=== PATIENT | male | born 1965 | race African-American/Black ===

== ENCOUNTER 2017-03-04 17:03 | Emergency (ER) | payer BC ==
[~2017-03-04] VITALS: Ht 167.6 cm; Wt 81.7 kg
[~2017-03-04 17:03] MED LIST: ADULT LOW DOSE81 MG PO; ALLEGRA ALLERG180 MG PO; ASPIRIN325 PO; COLACE100 MG PO; IBUPROFEN 600600 M1 PO; IBUPROFEN 800800 M1 PO; LEVAQUIN 500 M500 MG PO; LIPITOR 10 MG10 M1 PO; NORCO 5-325 TA1 EACH PO; PHENERGAN 25 MG25 M1 PO; PREDNISONE50 MG PO; PRILOSEC40 MG PO; PROMETHAZINE-C120 ML PO; TRAMADOL 50 MG50 MG PO; ZOFRAN ODT4 MG PO; ZPAK PO
[2017-03-04] MEDS ORDERED: OMEPRAZOLE40 MG PO (17:48)
[2017-03-04] MEDS ORDERED: OLMSRTN-AMLDPN1 EACH PO (17:48)
[2017-03-04] MEDS ORDERED: NAPROSYN500 MG PO (18:36)
[2017-03-04] MEDS ORDERED: ULTRAM 50MG TAB50 MG PO (18:36)
== END 2017-03-04 19:06 | disposition home or self-care (01) ==
LOC: ER 17:03
DX: S63.502A Unspecified sprain of left wrist, initial encounter (principal); I10 Essential (primary) hypertension; F17.210 Nicotine dependence, cigarettes, uncomplicated; Z88.0 Allergy status to penicillin; X50.0XXA Overexertion from strenuous movement or load, initial encounter; Y93.89 Activity, other specified; Y92.89 Other specified places as the place of occurrence of the external cause; Y99.8 Other external cause status

== ENCOUNTER 2020-11-04 08:50 | Observation (INO) | payer BC ==
[~2020-11-04] VITALS: Ht 167.6 cm; Wt 127.5 kg
[~2020-11-04 08:50] MED LIST changes: +NAPROSYN500 MG PO; +OLMSRTN-AMLDPN1 EACH PO; +OMEPRAZOLE40 MG PO; +ULTRAM 50MG TAB50 MG PO
[2020-11-04 08:55] VITALS: BP 175/107
[2020-11-04 09:41] LABS: ABSOLUTE NEUTROPHILS 6.8 thou/uL (1.4-8.2); BASOPHILS 0.4 % (0.0-2.0); EOSINOPHILS 2.2 % (0.0-3.0); HEMATOCRIT 39.7 % (42.0-52.0); HEMOGLOBIN 13.5 gm/dL (14.0-18.0); LYMPHOCYTES 20.1 % (24.0-44.0); MCH 31.2 pg (26.0-34.0); MCHC 33.8 g/dL (28.0-37.0); MCV 92.2 fL (80.0-100.0); MONOCYTES 9.8 % (1.0-8.0); POLYS 67.5 % (36.0-66.0); RBC 4.31 mil/uL (4.50-6.00); WBC 10.1 thou/uL (4.0-11.0)
[2020-11-04 10:05] LABS: ANION GAP 10 mmol/L (7-16); BUN 15 mg/dL (7-18); CALCIUM 8.9 mg/dL (8.5-10.1); CHLORIDE 99 mmol/L (98-107); CO2 31 mmol/L (21-32); GLUCOSE 97 mg/dL (74-106); SODIUM 140 mmol/L (136-145); TROPONIN-I <0.06 ng/mL (<0.06)
[2020-11-04 10:06] LABS: POTASSIUM 2.7 mmol/L (3.5-5.1)
[2020-11-04 10:20] LABS: PLATELET COUNT 189 thou/uL (150-400); PLATELET ESTIMATE NORMAL
[2020-11-04 11:00] VITALS: BP 178/104
--- NOTE | 2020-11-04 11:37 | EKG ---
[address] [address] ELECTROCARDIOGRAM REPORT Name: KENNYAMY Montse Room #: 170-8 ADM IN M.R.#: [id number] Admission: 11/04/20 Attend Phys: Adi Zarco MD Discharge: Date of : 61 Report #: [id number] [facility] ED Test Date: 2020-11-04 Test Time: 08:52:41 Pat Name: AMY COX Department: Room: 170 Gender: M Technical Account Manager: CARIDAD : 1965 Requested By: Helene Coppola Order Number: [id number] MD: Abelardo Arauz Measurements Intervals [place] Rate: 66 P: 9 MT: 221 QRS: 2 QRSD: 117 T: 56 QT: 417 QTc: 437 Interpretive Statements Sinus rhythm Prolonged MT interval Nonspecific intraventricular conduction delay Compared to ECG 05/05/2012 22:16:22 Intraventricular conduction delay now present Electronically Signed On 11-04-2020 11:36:56 [employer] by Abelardo Arauz [email or web address] <ELECTRONICALLY SIGNED> By: Abelardo Arauz MD, [facility] 11/04/20 1136 0852 1 Abelardo Arauz MD, FAC /EPI
[2020-11-04 11:56] VITALS: BP 178/104
[2020-11-04 12:00] VITALS: BP 174/76
--- NOTE | 2020-11-04 14:15 | 2DMMODE ---
[facility] [place] [address] 2 D/M-MODE ECHOCARDIOGRAM Name: AMY COX Room #: 213-P ADM IN .R.#: [id number] Admission: 11/04/20 Attend Phys: Adi Zarco MD Discharge: Date of : 61 Report #: [id number] THIS REPORT FOR: cc: Bala Navarro Steven F. DO Lammoglia, Francisco J. MD ~ APPROVED REPORT Study performed: 11/04/2020 12:45:45 EXAM: Comprehensive 2D, Doppler, and color-flow Echocardiogram Patient Location: Bedside Room #: 213 Status: routine BSA: 1.93 HR: 61 bpm BP: 178/104 mmHg Rhythm: NSR Other Information Study Quality: Good Indications Chest Pain Hx: HTN, HLD, tob/alcohol abuse 2D Dimensions RVDd: 35.53 mm IVSd: 13.12 (7-11mm) LVOT Diam: 24.68 (18-24mm) LVDd: 57.71 mm PWd: 12.00 (7-11mm) Ascending Ao: 31.93 (22-36mm) LVDs: 44.92 (25-40mm) Aortic Root: 37.83 mm Volumes Left Atrial Volume (Systole) Single Plane 4CH: 45.79 mL Single Plane 2CH: 66.74 mL LA ESV Index: 32.00 mL/m2 Aortic Valve AoV Peak Marcus.: 0.77 m/s AO Peak Gr.: 2.36 mmHg LVOT Max P.73 mmHg LVOT Max V: 0.83 m/s RAMU Vmax: 5.14 cm2 [facility] [address] [place] [address] 2 D/M-MODE ECHOCARDIOGRAM Name: KENNYAMY Montse Room #: 213-P [facility]#: [id number] Admission: 11/04/20 Attend Phys: Adi Zarco MD Discharge: Date of : 61 Report #: [id number] Mitral Valve E/A Ratio: 1.0 MV Decel. Time: 230.58 ms MV E Max Marcus.: 0.51 m/s MV A Marcus.: 0.51 m/s MV PHT: 66.87 ms IVRT: 110.73 ms Pulmonary Valve PV Peak Marcus.: 0.85 m/s PV Peak Gr.: 2.91 mmHg Pulmonary Vein P Vein S: 0.56 m/s P Vein D: 0.32 m/s P Vein S/D Ratio: 1.75 Tricuspid Valve TR Peak Marcus.: 1.72 m/s RAP Estimate: 5.00 mmHg TR Peak Gr.: 11.77 mmHg PA Pressure: 17.00 mmHg Left Ventricle Left ventricle is at the upper limits of normal. Mild concentric left ventricular hypertrophy. Left ventricular systolic function is low normal. LVEF is 50%. Mild diastolic dysfunction is present (impaired relaxation pattern). Right Ventricle The right ventricle is normal size. The right ventricular systolic function is normal. Atria The left atrium size is normal. The right atrium size is normal. Aortic Valve The aortic valve is normal in structure; leaflets mildly thickened & calcified. Trace aortic regurgitation. There is no aortic valvular stenosis. Mitral Valve The mitral valve is normal in structure. There is no mitral valve regurgitation noted. No evidence of mitral valve stenosis. Tricuspid Valve [facility] [address] [place] [address] 2 D/M-MODE ECHOCARDIOGRAM Name: AMY COX Room #: 213-P [facility]#: [id number] Admission: 11/04/20 Attend Phys: Adi Zarco MD Discharge: Date of : 61 Report #: [id number] The tricuspid valve is normal in structure. Trace to mild tricuspid regurgitation. Estimated PAP is 17mmHg. Pulmonic Valve The pulmonary valve is normal in structure. Trace pulmonic regurgitation. Great Vessels Aortic root is upper limits of normal The ascending aorta is normal in size. IVC is normal in size and collapses >50% with inspiration. Pericardium There is no pericardial effusion. <Conclusion> Left ventricle is at the upper limits of normal. LVEF is 50%. The aortic valve is normal in structure; leaflets mildly thickened & calcified. Trace aortic regurgitation. The mitral valve is normal in structure. The tricuspid valve is normal in structure. Trace to mild tricuspid regurgitation. Estimated PAP is 17mmHg. The pulmonary valve is normal in structure. Trace pulmonic regurgitation. Aortic root is upper limits of normal There is no pericardial effusion. <ELECTRONICALLY SIGNED> By: Jarrett Gaytan MD 11/04/20 1415 1415 141 Jarrett Gaytan MD /INF
--- NOTE | 2020-11-04 14:57 | NUR ---
pt was admitted around 1200 to room 213 from ed. pt admission done and orders implemented. cardiology came to see pt.
[2020-11-04 15:19] LABS: CHOLESTEROL 243 mg/dL (<200); HDL CHOLESTEROL 50 mg/dL (>40); LDL CHOLESTEROL 167 mg/dL (<100); TC:HDL 4.9 Ratio (Not establshd); TRIGLYCERIDE 131 mg/dL (<150); VLDL 26 mg/dL (<40)
[2020-11-04 15:36] LABS: MAGNESIUM 2.6 mg/dL (1.8-2.4); POTASSIUM 3.1 mmol/L (3.5-5.1); TROPONIN-I <0.06 ng/mL (<0.06)
[2020-11-04 15:40] VITALS: BP 170/97
--- NOTE | 2020-11-04 18:08 | NUR ---
PT SEEN BY CARDIOLOGY, NO PROCEDURES PLANNED, PER LINE DEPARTMENT SUPERVISOR WITH HOSPITALIST PT DOES NOT NEED A COVID SWAB, ORDER CANCELED. PT DENIES ANY NEEDS. PER CARDIOLOGY TRYING TO BETTER CONTROL BP THEN OPT STRESS TEST
[2020-11-04 20:01] VITALS: BP 157/97
[2020-11-05 00:35] VITALS: BP 147/84
[2020-11-05 04:54] VITALS: BP 146/88
--- NOTE | 2020-11-05 04:58 | NUR ---
ASSUMED PATIENT CARE AT 1845. VITAL SIGNS STABLE WITH PATIENT HAVING NO COMPLAINTS OF PAIN OR NAUSEA. FULLY ORIENTED, PATIENT IS ABLE TO CALL APPROPRIATELY FOR NEEDS AND PARTICIPATE IN CARE. POTASSIUM REPLACED PER PROTOCOL. PATIENT HAS BEEN UP AD [place] THROUGHOUT SHIFT AND APPEARS STRONG AND BALANCED WHEN AMBULATING. CONTINUE PLAN OF CARE.
[2020-11-05 05:11] LABS: BASOPHILS 0.4 % (0.0-2.0); EOSINOPHILS 2.9 % (0.0-3.0); HEMOGLOBIN 13.8 gm/dL (14.0-18.0); LYMPHOCYTES 21.8 % (24.0-44.0); MCH 31.5 pg (26.0-34.0); MCHC 33.7 g/dL (28.0-37.0); MCV 93.5 fL (80.0-100.0); MONOCYTES 10.3 % (1.0-8.0); PLATELET COUNT 185 thou/uL (150-400); POLYS 64.6 % (36.0-66.0); RBC 4.39 mil/uL (4.50-6.00); RDW 13.9 % (10.5-14.5); WBC 7.8 thou/uL (4.0-11.0)
[2020-11-05 05:59] LABS: ANION GAP 10 mmol/L (7-16); BUN 14 mg/dL (7-18); CALCIUM 9.4 mg/dL (8.5-10.1); CHLORIDE 101 mmol/L (98-107); CHOLESTEROL 224 mg/dL (<200); CO2 28 mmol/L (21-32); CREATININE 1.2 mg/dL (0.7-1.3); GLUCOSE 102 mg/dL (74-106); HDL CHOLESTEROL 40 mg/dL (>40); LDL CHOLESTEROL 151 mg/dL (<100); MAGNESIUM 2.1 mg/dL (1.8-2.4); POTASSIUM 3.8 mmol/L (3.5-5.1); SODIUM 139 mmol/L (136-145); TC:HDL 5.6 Ratio (Not establshd); TRIGLYCERIDE 166 mg/dL (<150); VLDL 33 mg/dL (<40)
[2020-11-05 06:09] LABS: SERUM ASSESSMENT Clear
[2020-11-05 08:00] VITALS: BP 151/91
[2020-11-05] MEDS ORDERED: LIPITOR40 MG PO (10:31)
[2020-11-05] MEDS ORDERED: MAG-OXIDE400 MG PO (10:31)
[2020-11-05] MEDS ORDERED: KLOR-CON M2020 MEQ PO (10:31)
[2020-11-05] MEDS ORDERED: LO-DOSE ASPIRIN81 M1 PO (10:31)
[2020-11-05] MEDS ORDERED: OLMSRTN-AMLDPN1 EACH PO (10:31)
[2020-11-05] MEDS ORDERED: TOPROL XL25 MG PO (11:27)
[2020-11-05 11:45] VITALS: BP 143/95
[2020-11-05 13:43] VITALS: BP 143/95
--- NOTE | 2020-11-05 19:54 | NUR ---
ASSUMED CARE OF PT AT SHIFT CHANGE. ASSESSMENTS CHARTED. MEDS GIVEN PER DEC. PT A&OX4, C/O PAIN OR DISTRESS. DISCHARGE ORDERS AND INSTRUCTIONS COMPLETE. THIS NURSE WALKED PT TO ER ENTRANCE TO HIS PERSONAL CAR.
== END 2020-11-05 14:00 | disposition home or self-care (01) ==
LOC: ER 08:50 → 2N 10:52 → EROBS 10:52 → 2N 10:52
PROVIDERS: Emergency Medicine; Nurse Practitioner; ADMIT Hospitalist; ATTEND Hospitalist
DX: R07.89 Other chest pain (principal); E87.6 Hypokalemia; E83.42 Hypomagnesemia; I10 Essential (primary) hypertension; E78.5 Hyperlipidemia, unspecified; F17.210 Nicotine dependence, cigarettes, uncomplicated; Z88.0 Allergy status to penicillin; Z79.899 Other long term (current) drug therapy
CPT/HCPCS: 10081

== ENCOUNTER → 2020-11-19 | Outpatient (CLI) | payer BC ==
[~2020-11-19] MED LIST changes: +KLOR-CON M2020 MEQ PO; +LIPITOR40 MG PO; +LO-DOSE ASPIRIN81 M1 PO; +MAG-OXIDE400 MG PO; +TOPROL XL25 MG PO
== END ==
LOC: SJCVCIMAG 09:44
PROVIDERS: ATTEND Internal Medicine Cardiovascular Disease
DX: I48.91 Unspecified atrial fibrillation (principal); R07.9 Chest pain, unspecified; I10 Essential (primary) hypertension; R53.83 Other fatigue; E78.00 Pure hypercholesterolemia, unspecified; Z72.0 Tobacco use

== ENCOUNTER 2021-05-09 09:01 | Emergency (ER) | payer BC ==
[~2021-05-09] VITALS: Ht 167.6 cm; Wt 86.2 kg
[2021-05-09 09:45] LABS: ABSOLUTE NEUTROPHILS 6.7 thou/uL (1.4-8.2); BASOPHILS 0.9 % (0.0-2.0); EOSINOPHILS 3.6 % (0.0-3.0); HEMOGLOBIN 13.6 gm/dL (14.0-18.0); LYMPHOCYTES 18.4 % (24.0-44.0); MCH 30.6 pg (26.0-34.0); MCHC 34.8 g/dL (28.0-37.0); MCV 87.8 fL (80.0-100.0); MONOCYTES 10.1 % (1.0-8.0); PLATELET COUNT 243 thou/uL (150-400); RBC 4.44 mil/uL (4.50-6.00); RDW 13.5 % (10.5-14.5)
[2021-05-09 09:57] LABS: CALCIUM 9.5 mg/dL (8.5-10.1); CREATININE 1.1 mg/dL (0.7-1.3)
[2021-05-09 10:04] LABS: ALBUMIN 3.6 g/dL (3.4-5.0); TOTAL BILIRUBIN 0.5 mg/dL (0.2-1.0); TOTAL PROTEIN 8.1 g/dL (6.4-8.2)
[2021-05-09 12:09] LABS: URINE BILIRUBIN NEGATIVE (Negative); URINE BLOOD NEGATIVE (Negative); URINE CLARITY CLEAR; URINE COLOR YELLOW; URINE GLUCOSE-RANDOM* NEGATIVE (Negative); URINE KETONES NEGATIVE (Negative); URINE LEUKOCYTES-REFLEX NEGATIVE (Negative); URINE NITRITE-REFLEX NEGATIVE (Negative); URINE PROTEIN (DIPSTICK) NEGATIVE (Negative); URINE UROBILINOGEN 0.2 E.U./dl (0.2-1.0)
[2021-05-09 13:08] VITALS: BP 156/79
== END 2021-05-09 13:03 | disposition home or self-care (01) ==
LOC: ER 09:01
PROVIDERS: Emergency Medicine
DX: R53.1 Weakness (principal); Z20.822 Contact with and (suspected) exposure to COVID-19; I10 Essential (primary) hypertension; F17.210 Nicotine dependence, cigarettes, uncomplicated; E78.5 Hyperlipidemia, unspecified; Z79.899 Other long term (current) drug therapy; Z88.0 Allergy status to penicillin; Z86.16 Personal history of COVID-19

== ENCOUNTER 2021-06-09 14:01 | Emergency (ER) | payer BC ==
[~2021-06-09] VITALS: Ht 167.6 cm; Wt 81.7 kg
[2021-06-09 14:33] LABS: ABSOLUTE NEUTROPHILS 5.7 thou/uL (1.4-8.2); BASOPHILS 0.4 % (0.0-2.0); EOSINOPHILS 3.7 % (0.0-3.0); HEMATOCRIT 36.6 % (42.0-52.0); HEMOGLOBIN 12.2 gm/dL (14.0-18.0); LYMPHOCYTES 23.1 % (24.0-44.0); MCH 29.4 pg (26.0-34.0); MCHC 33.3 g/dL (28.0-37.0); MCV 88.2 fL (80.0-100.0); MONOCYTES 7.1 % (1.0-8.0); PLATELET COUNT 186 thou/uL (150-400); POLYS 65.7 % (36.0-66.0); RBC 4.15 mil/uL (4.50-6.00); WBC 8.6 thou/uL (4.0-11.0)
[2021-06-09 14:44] LABS: CALCIUM 8.7 mg/dL (8.5-10.1); CREATININE 1.4 mg/dL (0.7-1.3); POTASSIUM 3.5 mmol/L (3.5-5.1)
[2021-06-09 14:55] LABS: ALBUMIN 3.9 g/dL (3.4-5.0); TOTAL BILIRUBIN 0.4 mg/dL (0.2-1.0); TOTAL PROTEIN 7.8 g/dL (6.4-8.2)
[2021-06-09 16:51] VITALS: BP 174/101
--- NOTE | 2021-06-10 08:26 | EKG ---
[address] [place] [address] [facility] [place] [address] ELECTROCARDIOGRAM REPORT Name: AMY COX Room #: [facility]#: [id number] Admission: 06/09/21 Attend Phys: Discharge: 06/09/21 Date of : 61 Report #: [id number] [facility] ED Test Date: 2021-06-09 Test Time: 14:05:44 Pat Name: AMY COX Department: Room: Gender: Senior Ui Ux Designer: : 1965 Requested By: Chikis Diaz Order Number: [id number] MD: Mega Duffy Measurements Intervals [place] Rate: 75 P: 40 SC: 210 QRS: 2 QRSD: 111 T: 56 QT: 410 QTc: 458 Interpretive Statements Sinus rhythm Prolonged SC interval Intraventricular conduction delay Compared to ECG 11/04/2020 08:52:41 No significant change was found Electronically Signed On 06-10-2021 8:25:58 CDT by Mega Duffy [email or web address] <ELECTRONICALLY SIGNED> By: Mega Duffy MD, [facility] 06/10/21 0825 1405 1405 Mega Duffy MD, FACC /EPI
== END 2021-06-09 16:51 | disposition home or self-care (01) ==
LOC: ER 14:01
PROVIDERS: Emergency Medicine
DX: R07.89 Other chest pain (principal); I10 Essential (primary) hypertension; E78.5 Hyperlipidemia, unspecified; F17.210 Nicotine dependence, cigarettes, uncomplicated; Z79.899 Other long term (current) drug therapy; Z88.0 Allergy status to penicillin

== ENCOUNTER 2021-09-08 11:40 | Emergency (ER) | payer BC ==
[~2021-09-08] VITALS: Ht 167.6 cm; Wt 86.2 kg
[2021-09-08] MEDS ORDERED: PROTONIX40 M2 PO (11:59)
[2021-09-08] MEDS ORDERED: MAGNESIUM250 M1 PO (11:59)
[2021-09-08 12:16] LABS: ABSOLUTE NEUTROPHILS 5.1 thou/uL (1.4-8.2); BASOPHILS 0.9 % (0.0-2.0); EOSINOPHILS 4.5 % (0.0-3.0); HEMATOCRIT 37.3 % (42.0-52.0); HEMOGLOBIN 12.7 gm/dL (14.0-18.0); LYMPHOCYTES 22.8 % (24.0-44.0); MCH 30.2 pg (26.0-34.0); MCHC 34.2 g/dL (28.0-37.0); MCV 88.4 fL (80.0-100.0); MONOCYTES 8.9 % (1.0-8.0); PLATELET COUNT 182 thou/uL (150-400); POLYS 62.9 % (36.0-66.0); RBC 4.22 mil/uL (4.50-6.00); RDW 13.6 % (10.5-14.5); WBC 8.2 thou/uL (4.0-11.0)
[2021-09-08 12:26] LABS: CALCIUM 8.6 mg/dL (8.5-10.1); POTASSIUM 3.5 mmol/L (3.5-5.1)
--- NOTE | 2021-09-08 12:26 | EKG ---
[address] [place] [address] ELECTROCARDIOGRAM REPORT Name: AMY COX Room #: [facility].#: [id number] Admission: Attend Phys: Discharge: Date of : 61 Report #: [id number] [facility] ED Test Date: 2021-09-08 Test Time: 11:43:58 Pat Name: AMY COX Department: Room: Gender: Engineer Of System Development: Prasad VILLARREAL : 1965 Requested By: Jeremiah Clemons Order Number: [id number] MD: Abelardo Arauz Measurements Intervals [place] Rate: 62 P: 7 SC: 236 QRS: -22 QRSD: 109 T: 58 QT: 431 QTc: 445 Interpretive Statements Sinus rhythm Prolonged SC interval Borderline left axis deviation Borderline T wave abnormalities Compared to ECG 06/09/2021 14:05:44 T-wave abnormality now present Intraventricular conduction delay no longer present Electronically Signed On 09-08-2021 12:26:05 [employer] by Abelardo Arauz [email or web address] <ELECTRONICALLY SIGNED> By: Abelardo Arauz MD, [facility] 09/08/21 1226 1143 1143 Abelardo Arauz MD, FACC /EPI
[2021-09-08 13:37] VITALS: BP 161/68
== END 2021-09-08 13:38 | disposition home or self-care (01) ==
LOC: ER 11:40
PROVIDERS: Nurse Practitioner
DX: R07.89 Other chest pain (principal); I10 Essential (primary) hypertension; E78.5 Hyperlipidemia, unspecified; F17.210 Nicotine dependence, cigarettes, uncomplicated; Z88.0 Allergy status to penicillin; Z79.899 Other long term (current) drug therapy; Z79.82 Long term (current) use of aspirin

== ENCOUNTER → 2021-10-26 | Outpatient (CLI) | payer BC ==
[~2021-10-26] MED LIST changes: +MAGNESIUM250 M1 PO; +PROTONIX40 M2 PO
== END ==
LOC: CAT 11:11
PROVIDERS: ATTEND Nurse Practitioner
DX: K57.30 Diverticulosis of large intestine without perforation or abscess without bleeding (principal); K40.90 Unilateral inguinal hernia, without obstruction or gangrene, not specified as recurrent; N32.89 Other specified disorders of bladder; E27.8 Other specified disorders of adrenal gland; R19.7 Diarrhea, unspecified; R52 Pain, unspecified

== ENCOUNTER → 2021-10-28 | Outpatient (CLI) | payer BC | LOC: MRI 10-27 16:10 | PROVIDERS: ATTEND Nurse Practitioner | DX: N28.89 Other specified disorders of kidney and ureter (principal); D73.4 Cyst of spleen; E27.8 Other specified disorders of adrenal gland ==